=== PATIENT | female | born 1960 | race Asian ===

== ENCOUNTER 2017-07-13 13:57 | Emergency (ER) | payer BC ==
[~2017-07-13] VITALS: Ht 152.4 cm; Wt 59.1 kg
[~2017-07-13 13:57] MED LIST: AMBIEN CR6.25 MG PO; FLEXERIL10 MG PO; OXYCODONE5 M1 PO; SINGULAIR10 MG PO
[2017-07-13 14:00] VITALS: TEMP 97.4
[2017-07-13] MEDS ORDERED: AMBIEN 5MG TABLE5 MG PO (14:06)
[2017-07-13] MEDS ORDERED: ULTRAM 50MG TAB50 MG PO (14:06)
[2017-07-13] MEDS ORDERED: ZYRTEC 10MG10 MG PO (14:07)
[2017-07-13] MEDS ORDERED: FLEXERIL 1010 MG/TAB PO (15:22)
[2017-07-13] MEDS ORDERED: TYLENOL W/COD1 UDTAB PO (15:22)
[2017-07-13 15:31] VITALS: BP 133/59; PULSE 77
== END 2017-07-13 15:39 | disposition home or self-care (01) ==
LOC: COL.ER
DX: S16.1XXA Strain of muscle, fascia and tendon at neck level, initial encounter (principal); S40.212A Abrasion of left shoulder, initial encounter; Z23 Encounter for immunization; V43.52XA Car driver injured in collision with other type car in traffic accident, initial encounter

== ENCOUNTER 2023-09-29 20:37 | Emergency (ER) | payer BC ==
[~2023-09-29] VITALS: Ht 152.4 cm; Wt 63.6 kg
[~2023-09-29 20:37] MED LIST changes: +AMBIEN 5MG TABLE5 MG PO; +FLEXERIL 1010 MG/TAB PO; +TYLENOL W/COD1 UDTAB PO; +ULTRAM 50MG TAB50 MG PO; +ZYRTEC 10MG10 MG PO
[2023-09-29 21:20] VITALS: BP 150/80; PULSE 86; TEMP 98
== END 2023-09-29 21:20 | disposition home or self-care (01) ==
LOC: COL.ER 20:37
DX: S61.216A Laceration without foreign body of right little finger without damage to nail, initial encounter (principal); Z91.040 Latex allergy status; W27.4XXA Contact with kitchen utensil, initial encounter